=== PATIENT | male | born 1945 | race Caucasian/White ===

== ENCOUNTER 2021-10-20 22:44 | Emergency (ER) | payer OTHER ==
[~2021-10-20] VITALS: Ht 177.8 cm; Wt 65.9 kg
[2021-10-20] MEDS ORDERED: ELVI1TAB3 PO (23:36)
[2021-10-20] MEDS ORDERED: CARB1TAB35 PO (23:36)
[2021-10-20] MEDS ORDERED: AMAN100C15 PO (23:36)
[2021-10-20 23:41] VITALS: BP 139/96
[2021-10-21] MEDS ORDERED: CARBIDOPA/LEVODOPA 25-100 MG ER TABLET PO ONE
== END 2021-10-21 03:37 | disposition home or self-care (01) ==
LOC: EMS 22:45
DX: G20 Parkinson's disease (principal); Z79.899 Other long term (current) drug therapy
CPT/HCPCS: 99283